=== PATIENT | female | born 1975 | race Caucasian/White ===

== ENCOUNTER 2018-06-09 15:53 | Inpatient (IN) | payer BC, OTHER ==
[~2018-06-09 15:53] MED LIST: ISOVUE-370 76%-LOCM 1 ML ONE; Iopamidol 370 76% 50 ML VIAL FS ONE
[2018-06-09] MEDS ORDERED: Acetaminophen 1,000 MG in Premix Bag 1 BAG IVPB PRN (17:38)
[2018-06-09] MEDS ORDERED: Ketorolac Tromethamine 30 MG/ML VIAL IVP PRN (17:38)
[2018-06-09] MEDS ORDERED: Ketorolac Tromethamine 30 MG/ML VIAL IVP SCH (17:45)
[2018-06-09] MEDS ORDERED: Lactated Ringer's 1,000 ML IV SCH ×2 (17:45)
[2018-06-09] MEDS ORDERED: Acetaminophen 1,000 MG in Premix Bag 1 BAG IVPB SCH (17:45)
[2018-06-09 17:47] LABS: #Basophils 0.1 thou/uL (0.0-0.2); #Eosinphils 0.2 thou/uL (0.0-0.7); #Lymphocytes 2.5 thou/uL (1.20-3.40); #Monocytes 0.7 thou/uL (0.11-0.59); #Neutrophils 4.4 thou/uL (1.40-6.50); %Basophils 1.2 % (0.0-1.0); %Lymphocytes 32.1 % (21.0-51.0); %Monocytes 8.5 % (0.0-10.0); %Neutrophils 56.2 % (42.0-75.0); Mean Corpuscular HGB CONC 33.2 g/dL (32.0-36.0); Mean Corpuscular Volume 87.2 fL (78.0-98.0); Mean Platelet Volume 6.8 fL (7.4-10.4); Platelet Count 378 thou/uL (130-400); RBC Distribution Width 11.4 % (11.5-14.5); Red Blood Cell (RBC) Count 4.51 mill/uL (4.20-5.40); White Blood Cell (WBC) Count 7.8 thou/uL (4.8-10.8)
[2018-06-09 18:09] LABS: ALT (SGPT) 95 U/L (8-55); AST (SGOT) 19 U/L (5-34); Albumin 4.1 g/dL (3.5-5.0); Alkaline Phosphatase 129 U/L (40-150); Anion Gap 13 mmol/L (10-20); BUN (Urea Nitrogen) 11 mg/dL (7.0-18.7); Bilirubin, Total 0.7 mg/dL (0.2-1.2); Calc. Creatinine Clearance 0 mL/min (70-130); Calcium 8.8 mg/dL (7.8-10.44); Carbon Dioxide 24 mmol/L (22-29); Chloride 101 mmol/L (98-107); Estimated GFR-MDRD 87; Globulin 2.9 g/dL (2.4-3.5); Glucose 90 mg/dL (70-105); Sodium 135 mmol/L (136-145)
[2018-06-09 18:13] LABS: Potassium 2.9 mmol/L (3.5-5.1)
[2018-06-09] MEDS ORDERED: Promethazine HCl 25 MG/ML VIAL IVPB PRN (18:17)
[2018-06-09] MEDS ORDERED: Promethazine HCl 25 MG SUPP PR PRN (18:23)
[2018-06-09] MEDS ORDERED: Promethazine HCl 25 MG/ML VIAL IM PRN (18:23)
[2018-06-09] MEDS ORDERED: Pantoprazole 40 MG VIAL IVP SCH ×2 (19:00→21:00)
[2018-06-09 19:34] VITALS: BMI 22.8
[2018-06-09] MEDS: Enoxaparin Sodium 40 MG/0.4 ML SYRINGE SC SCH (21:44)
[2018-06-09] MEDS: Potassium Chloride 20 MEQ in Lactated Ringer's 1,000 ML IV SCH (21:54)
--- NOTE | 2018-06-09 21:58 | CT ---
CONTRAST ENHANCED CT IMAGES ABDOMEN AND PELVIS: 06/09/18 HISTORY: Pain in upper abdomen. Diarrhea. Contrast enhanced CT images of the abdomen and pelvis is obtained after administration of IV and oral contrast. The lung bases are unremarkable. The liver and spleen are unremarkable. The gallbladder has been surgically removed. The pancreas is u nremarkable. Adrenal glands and kidneys are unremarkable. No dilated loops of small bowel seen. A normal appearing appendix is seen. There is extensive heterogeneity in the ascending colon and cecum. I cannot exclude the possibility o f a cecal or ascending colonic mass. More distally, the colon contains some fluid. IMPRESSION: Extensive fluid in the colon compatible with patient's history of diarrhea; however, there also appea rs to be some heterogeneity in the ascending colon and cecum. This may represent a mixture of stool w ith oral contrast or may represent possible ascending colonic mucosal mass. Correlate with direct vis ualization. POS: TREVOR
--- NOTE | 2018-06-10 00:42 | CON ---
DATE OF CONSULTATION: 06/09/2018 GASTROENTEROLOGY CONSULTATION CHIEF COMPLAINT: Abdominal pain and diarrhea. HISTORY OF PRESENT ILLNESS: Ms. Valdes is a 42-year-old woman who was admitted this evening with epig astric abdominal pain and worsening diarrhea over the last 5 days. She has had chronic diarrhea with 8-10 loose watery bowel movements per day at baseline for years. Over the last several days; howeve r, the diarrhea has been more explosive and more watery and more frequent. Along with this, she has had pain, aching to cramping pain in the epigastric region that comes in waves, it lasts for several seconds at a time, multiple times per minute and several times per hour. She has had nausea associat ed with this, but no vomiting. She has had no blood in the stool. She has lost 15 pounds over the l ast year and a half unintentionally. She started lisinopril with hydrochlorothiazide a year ago for hypertension but has not been on any other medications over the counter. She has not done anything t o treat the chronic diarrhea recently, as she has not had success with treating this in the past. She has been [place] [address] Rosa for the chronic diarrhea. She underwent EGD and colo noscopy at that time with biopsies of the duodenum and colon, which were unremarkable. Colonoscopy t o the terminal ileum was normal. The upper endoscopy was unremarkable. She had her gallbladder out back in 1996 and she was treated with cholestyramine and Colestid without improvement. She does not get much dairy in her diet and the symptoms continue when she is off it. She a few years ago was linda ated by a doctor in [place] with Viberbereket. She states that her bowel movements actually went ba ck to normal and she did much better while on that medicine; however, she then started developing rig ht upper quadrant abdominal pain that went away when she stopped the medication. She was to the [facility]. She had an acute hepatitis in which time, her transaminases went up to the 5000 range; however, no acute etiology was identified for that. Her enzymes improved and she did not follow up further after that. She was not taking any Tylenol at that time per her r eport. PAST MEDICAL HISTORY: Irritable bowel syndrome with chronic diarrhea. Her last colonoscopy was 11 y ears ago now. She had endoscopy at that time, hypertension. PAST SURGICAL HISTORY: Hysterectomy, laparoscopic cholecystectomy, breast augmentation, rectocele re pair, EGD and colonoscopy, abdominoplasty, biceps repair. FAMILY HISTORY: Negative for GI malignancy. She thinks, she had an aunt might have had ulcerative c olitis. SOCIAL HISTORY: Rare alcohol use, maybe once per month. No smoking, no drugs. ALLERGIES: No known drug allergies. MEDICATIONS PRIOR TO ADMISSION: Lisinopril with hydrochlorothiazide. REVIEW OF SYSTEMS: Negative x10 systems reviewed except as stated in the history of present illness. PHYSICAL EXAMINATION: VITAL SIGNS: Temperature 98.7, pulse 67, blood pressure 125/81. GENERAL: She is in no acute distress. She is alert and oriented x3. EYES: Have no scleral icterus. OROPHARYNX: Clear without lesions. NECK: No cervical or supraclavicular lymphadenopathy. LUNGS: Clear to auscultation bilaterally. HEART: Regular rate and rhythm without murmur. ABDOMEN: Soft, mild tenderness in the epigastric region without guarding. Bowel sounds are present. EXTREMITIES: No lower extremity edema. NEUROLOGIC: Cranial nerves are grossly intact. LABORATORY AND X-RAY FINDINGS: White blood cell count 7.8, hemoglobin 13.0, platelets 378. Sodium 1 35, potassium 2.9, creatinine 0.3. Bilirubin 0.7, AST 19, ALT 95, alkaline phosphatase 129, albumin 4.1. IMPRESSION: 1. Epigastric pain and acute on chronic diarrhea. She has a longstanding history of irritable bowel syndrome, diarrhea, predominant. This acute episode with nausea and upper abdominal pain and diarrh ea could just be an acute infectious, gastroenteritis on top of her chronic symptoms; however, there could be a more significant chronic process with that. This is an acute flare of. She has had simil ar upper abdominal pain with her irritable bowel syndrome in the past. Regarding the long-term chron ic diarrhea, she has had colonoscopy to the terminal ileum and endoscopy, both with biopsies of the d uodenum and colon that have been negative. She really has not followed up with GI recently regarding these symptoms. She has been treated with bile salt binding agents in the past without help. She w as treated with Viberzi, which helped her diarrhea greatly while she was on it; however, she develope d right upper quadrant pain secondary to the medication which went away when she stopped it. This me dicine is now identified to be contraindicated in people with whom have had cholecystectomy. She has ongoing symptoms even when she is not using lactose. At this point, I would suspect an acute infect ious gastroenteritis on top of her chronic underlying irritable bowel. She is at a point now that sh janeth should have followup endoscopy and colonoscopy to evaluate her chronic symptoms. Ideally, if this is an acute infectious process that she has now then she should delay the EGD and colonoscopy until a fter this acute episode resolves. If she fails to improve; however, then EGD and colonoscopy can be performed more immediately. 2. Abnormal liver function tests, her ALT was elevated in the three times upper limit of normal rang e. Given that she had the past severe acute hepatitis without an identified source. I will send fur ther workup for chronic liver disease as well. She could have fatty liver disease. She is scheduled to have a CT today and we will see if there is obvious evidence of fatty liver disease with that. RECOMMENDATIONS: 1. Check viral hepatitis panel and autoimmune markers and iron saturation and alpha 1 antitrypsin le deya and ceruloplasmin. 2. Stool studies for C. diff culture and ova and parasites and lactoferrin. 3. She eventually should have upper and lower endoscopy. Ideally, this would be a couple of weeks o r more after she resolves from this acute process; however, if she fails to improve over the next few days with fluids and antiemetics then more immediate endoscopy can be considered.
[2018-06-10] MEDS: Potassium Chloride 20 MEQ in Lactated Ringer's 1,000 ML IV SCH ×2 (04:41→22:14)
[2018-06-10 05:44] LABS: Anion Gap 9 mmol/L (10-20); BUN (Urea Nitrogen) 8 mg/dL (7.0-18.7); Calc. Creatinine Clearance 97 mL/min (70-130); Calcium 8.1 mg/dL (7.8-10.44); Carbon Dioxide 24 mmol/L (22-29); Chloride 105 mmol/L (98-107); Estimated GFR-MDRD Greater than 90; Glucose 80 mg/dL (70-105); Potassium 3.5 mmol/L (3.5-5.1); Sodium 134 mmol/L (136-145)
[2018-06-10 08:22] LABS: Iron 80 ug/dL (50-170); Iron Binding Capacity, Total 245 mcg/dL (265-497)
--- NOTE | 2018-06-10 08:23 | HP ---
HISTORY OF PRESENT ILLNESS: Silvina Valdes is a 42-year-old female well known to me. The patient pr esents with four days of explosive, voluminous diarrhea 10-12 liquid stools per day. She complains o f unresolving intolerable pain. She has marginal fluid intake. She feels very weak and is dehydrate d. She was hospitalized 2-3 years ago in [place], [place] for a similar episode without the d iarrhea with upper abdominal pain, requiring NG tube for 4 days. CAT scan obtained. No endoscopy pe rformed. The patient does have chronic problems with loose stools having 8 to 10 a day, watery, but this current episode is associated with pain and explosive diarrhea more voluminous. She has not manisha e any antibiotics recently. She has not undergone any foreign travel or eat any unusual food and the re is no one sick in her family. Because of her dehydration, abdominal pain and acute nature unresol ving, plan is to admit her, hydrate her, obtain CAT scan of abdomen and pelvis as well as labs and ob tain GI consultation. Last colonoscopy, upper endoscopy was probably in [address] Maddox prior to hy sterectomy. Dr. Baldwin has seen her in the past. The patient has lost weight unintentionally recent ly in the last few months. 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 LABORATORY DATA: Pending. ALLERGIES: None. TOBACCO: None. ALCOHOL: None. MEDICATIONS: Lisinopril/hydrochlorothiazide 20/12.5 daily, azelastine/hydrochloride 20/12.5 mcg spra y twice daily. PAST MEDICAL HISTORY: Chronic diarrhea, urolithiasis, depression, malaise, fatigue, irritable bowel syndrome type symptoms. ALLERGIES: HYDROCODONE, TAPE. PAST SURGICAL HISTORY: Hysterectomy in 2003 without oophorectomy, rectocele 2003, cystocele 2003, ch olecystectomy laparoscopic in [address] Xiao, colonoscopy by Dr. Rosa in 2006, and 201 0 colonoscopy and EGD by Dr. Maddox, breast augmentation, abdominoplasty. REVIEW OF SYSTEMS: Ten-point noncontributory. PHYSICAL EXAMINATION: VITAL SIGNS: 132 pounds, 5 feet 3 inches, 23 BMI, 141/64, 79, 98.1 degrees. LUNGS: Clear to auscultation. CARDIAC: Regular rate and rhythm without murmur or gallop. ABDOMEN: Soft, nondistended, mild tenderness with guarding upper abdomen. No peritoneal signs. Sca phoid abdomen. No hernias. EXTREMITIES: Without edema, palpable pulses. LYMPH: No lymphadenopathy in neck, axilla, groins. She is dehydrated and pale. ASSESSMENT AND PLAN: Dehydration, diarrhea, nausea without vomiting, abdominal pain. Admission as her pain is intolerable. Plan hydration, GI consultation. CT scan of abdomen and pelvi s, laboratory profile, stool studies, Cyclospora, , Clostridium difficile.
[2018-06-10 08:36] LABS: Ferritin 99.35 ng/mL (10-291)
[2018-06-10] MEDS: Pantoprazole 40 MG VIAL IVP SCH (08:51)
[2018-06-10 08:54] LABS: HBCM Index 0.06 S/CO (0-0.79); Hep A IgM AB Non-Reactive (NonReactive); Hep B Core Total Ab Non-Reactive (NonReactive); Hep B Core Total Index 0.04 S/CO (0-0.79); Hep B Surf Ag Non-Reactive S/CO (NonReactive); Hep C IgG Ab Non-Reactive (NonReactive); Hepatitis B Core IGM Abs Non-Reactive (NonReactive)
[2018-06-10 10:05] LABS: HBSAg Index 0.15 S/CO (0-0.99)
[2018-06-10 10:09] LABS: Hep A IgM S/CO 0.12 S/CO (0-0.79)
[2018-06-10 10:13] LABS: Hep B Surf AB Reactive (NonReactive)
[2018-06-10] MEDS ORDERED: Acetaminophen 500 MG TAB PO PRN (11:34)
--- NOTE | 2018-06-10 13:45 | PRG ---
DATE OF SERVICE: 06/10/2018 HISTORY OF PRESENT ILLNESS: Ms. Valdes is feeling a little better today after hydration. She is stil l having some abdominal pain. CAT scan revealed changes consistent with colitis ascending, transvers e colon. This is in the vicinity of her pain. CAT scan otherwise unremarkable last night. She has had more liquid stools that she has had for the past 4 days. White count is 7.8, hemoglobin 13, sodium 134, potassium improved from 2.9-3.5 this morning. Liver f unction tests essentially normal. Stool cultures reveal C. diff antigen and toxin negative. Campylo bacter, Shigella toxin test negative and stool lactoferrin positive. Cyclosporine is pending. PHYSICAL EXAMINATION: LUNGS: Clear to auscultation. CARDIAC: Regular rate and rhythm without murmur or gallop. ABDOMEN: Soft, nondistended, mild tenderness in right abdomen, upper abdomen without guarding or tucker ound. Scaphoid abdomen. EXTREMITIES: Unremarkable. ASSESSMENT AND PLAN: Severe gastroenteritis, dehydration, hypokalemia, all improved with hydration a nd potassium replacement. Toradol was working adequate for pain relief as needed. She can use p.r.n . IV or p.o. Ofirmev or Tylenol respectfully. I have initiated clear liquids. I have talked to Dr. Hodge who is planning colonoscopy either today or tomorrow. Bowel prep is planned. At this point Omid Mojica is covering the weekend. Dr. Mojica will be seeing her. She can be discharged home when appropriate per Gastroenterology workup and consultation. Followup should be with Gastroenterology. I have tentatively written a prescription for Flagyl and Cipro should she need it, but that will de pend on Gastroenterology's recommendation and stool culture results and endoscopy results. We will l eave that decision to Dr. Mojica and Dr. Hodge.
--- NOTE | 2018-06-10 14:18 | PRG ---
DATE OF SERVICE: 06/10/2018 SUBJECTIVE: Ms. Valdes feels much better today. Her nausea is resolved. Her pain is greatly improve d. She is continued to have liquidy stools. OBJECTIVE: VITAL SIGNS: Temperature 98.6, pulse 75, blood pressure 101/68. GENERAL: She is in no acute distress, alert and oriented x3. LUNGS: Clear to auscultation bilaterally. HEART: Regular rate and rhythm. ABDOMEN: Soft, nontender, nondistended. Bowel sounds are present. EXTREMITIES: No lower extremity edema. LABORATORY DATA: White blood cell count 7.8, hemoglobin 13.0, platelets 378. Hepatitis panel is neg ative except for a positive hepatitis B surface antibody secondary to past vaccination, creatinine 0. 7, iron 80, TIBC 245, ferritin 99. IMPRESSION: 1. Chronic diarrhea and abdominal pain, likely secondary to irritable bowel syndrome. Her last colo noscopy has been 10 years ago and she has numerous watery stools per day. This deserves followup exa m. 2. Abnormal CT scan showing a heterogeneity in the right colon/cecum. This may just be stool or con trast irregularity, but mucosal neoplastic lesion needs to be ruled out. 3. Abnormal liver function tests. She has had ALT 3 times upper limit of normal. This could be rel ated to fatty liver disease. The liver appeared unremarkable by CT. The spleen was normal by CT. T here are no obvious medications that she has been on to cause this. More extensive evaluation with l ab work including autoimmune markers and alpha 1 antitrypsin level and ceruloplasmin have been sent. 4. Acute worsening of her diarrhea. Stool studies are negative for infectious process so far. The culture is pending. RECOMMENDATIONS: 1. EGD and colonoscopy tomorrow. 2. Await additional blood work sent to evaluate the liver tests or the liver abnormalities.
[2018-06-10 14:46] LABS: EliA Vaculitis New Method **** NEW METHOD ****; Mitochondrial Ab Less than 0.5 U/mL (<4 Negative)
[2018-06-10] MEDS ORDERED: GoLYTELY 4,000 ml Bottle PO SCH (16:00)
[2018-06-10] MEDS: 1/2 NS w/KCL 20 mEq 1,000 ML IV SCH ×2 (16:18→21:22)
[2018-06-10] MEDS: Enoxaparin Sodium 40 MG/0.4 ML SYRINGE SC SCH (21:21)
[2018-06-11] MEDS: 1/2 NS w/KCL 20 mEq 1,000 ML IV SCH ×2 (01:27→07:10)
[2018-06-11 05:32] LABS: Anion Gap 13 mmol/L (10-20); BUN (Urea Nitrogen) Less than 4 mg/dL (7.0-18.7); Calc. Creatinine Clearance 105 mL/min (70-130); Calcium 8.2 mg/dL (7.8-10.44); Carbon Dioxide 21 mmol/L (22-29); Chloride 110 mmol/L (98-107); Estimated GFR-MDRD Greater than 90; Glucose 72 mg/dL (70-105); Potassium 3.9 mmol/L (3.5-5.1); Sodium 140 mmol/L (136-145)
[2018-06-11] MEDS ORDERED: Promethazine HCl 25 MG/ML VIAL IM PRN (08:47)
[2018-06-11] MEDS ORDERED: Ondansetron HCl/PF 4 MG/2 ML Vial IVP PRN (08:47)
[2018-06-11] MEDS ORDERED: Promethazine HCl 25 MG/ML VIAL SLOW IVP PRN (08:47)
[2018-06-11] MEDS ORDERED: Ondansetron HCl/PF 4 MG/2 ML Vial ONE (09:26)
--- NOTE | 2018-06-11 10:28 | OP ---
DATE OF PROCEDURE: 06/10/2018 PROCEDURE PERFORMED: Esophagogastroduodenoscopy with biopsy and colonoscopy with biopsy. PREOPERATIVE DIAGNOSES: Epigastric pain and chronic diarrhea. OPERATIVE DETAIL: Informed consent was obtained from the patient. She was sedated with total intrav enous anesthesia. The bite block was placed and the endoscope was advanced easily to the second port ion of the duodenum and retroflexion was performed in the stomach. The esophagus was normal. The GE junction was normal. The stomach was normal including retroflexed views. The pylorus and first and second portions of the duodenum were normal. Biopsies were obtained from the duodenum to rule out c eliac disease. The patient was turned around. Rectal exam was performed and was normal. The prepar ation quality was excellent. The colonoscope was advanced to the terminal ileum without difficulty. The mucosa of the terminal ileum was normal. The ileocecal valve and appendiceal orifice were clear ly identified. The colonic mucosa was normal throughout. Random biopsies were taken from the right and left colon to rule out microscopic colitis. Retroflexed views in the rectum were normal. IMPRESSION: 1. Normal esophagogastroduodenoscopy. Duodenal biopsies taken to rule out celiac disease. 2. Normal colonoscopy to the terminal ileum. Random biopsies taken from the colon to rule out micro scopic colitis. RECOMMENDATIONS: 1. Await histopathology. 2. Advance diet. 3. Add Metamucil 2 capsules daily. 4. Follow up in GI clinic with Dr. Rosa for long-term management of diarrhea predominant irritable bowel syndrome.
[2018-06-11 11:56] VITALS: BP 105/69; TEMP 97.8
[2018-06-11] MEDS: Pantoprazole 40 MG VIAL IVP SCH (12:02)
[2018-06-11] MEDS ORDERED: PROPOFOL 200 MG/20 ML VIAL ONE (15:51)
[2018-06-12] MEDS ORDERED: Metamucil PACK PO SCH (09:00)
--- NOTE | 2018-06-13 13:41 | DIS ---
DATE OF ADMISSION: 06/09/2018 DATE OF DISCHARGE: 06/11/2018 DISCHARGE DIAGNOSES: Abdominal pain, diarrhea, dehydration, hypokalemia. PROCEDURES DURING THIS HOSPITALIZATION: CT scan of abdomen and pelvis. Thickened colon. Upper endo scopy, normal esophagogastroduodenoscopy, biopsies to rule out celiac disease, performed colonoscopy random biopsies to rule out microscopic colitis. DISCHARGE MEDICATIONS: Protonix 40 mg a day, Metamucil twice a day. Follow up with Dr. Rosa for long-term management of diarrhea, predominantly irritable bowel syndrome . Gastroenteritis, exacerbation of her chronic diarrhea, note stool studies are negative. HISTORY: A 42-year-old female with severe abdominal pain, dehydration, and diarrhea. She has chroni c watery stools, but they become more volume and frequent and she had abdominal pain. She was seen i n my office, evaluated, and noted to be severely dehydrated and with her abdominal pain and her diarr hea, she was admitted. Potassium was 2.9 that was replaced, rechecked, and normalized. GI consultat ion, Dr. Hodge performed upper and lower endoscopy performed, CAT scan performed, results as noted. Stool studies obtained all of which were negative. Lactoferrin was elevated. The patient discharged home on Protonix, Metamucil, and resume her home medications lisinopril/hydrochlorothiazide 20/12.5 mg a day. She will follow up with Dr. Rosa.
[2018-06-14 14:23] LABS: Alpha-1-Antitrypsin 140 mg/dL (90-200)
== END 2018-06-11 12:35 | disposition home or self-care (01) | DRG 392 ==
LOC: SURG B 16:32
PROVIDERS: ADMIT Specialist; ATTEND Specialist
PROC: 0DB98ZX Excision of Duodenum, Via Natural or Artificial Opening Endoscopic, Diagnostic (ICD-10-PCS; principal; 2018-06-11)
PROC: 0DBG8ZX Excision of Left Large Intestine, Via Natural or Artificial Opening Endoscopic, Diagnostic (ICD-10-PCS; 2018-06-11)
PROC: 0DBF8ZX Excision of Right Large Intestine, Via Natural or Artificial Opening Endoscopic, Diagnostic (ICD-10-PCS; 2018-06-11)
DX: K52.9 Noninfective gastroenteritis and colitis, unspecified (principal); E86.0 Dehydration; E87.6 Hypokalemia
CPT/HCPCS: 36415; 74177; 80048; 80053; 80074; 82103; 82104; 82390; 82728; 83516; 83540; 83550; 83630; 85025; 86704; 86706; 87015; 87045; 87046; 87177; 87206; 87324; 87449; 87899; 88305; C9113; J0131; J1650; J1885; J2270; J2405; J2550; J2704; J3480; J7120

== ENCOUNTER 2020-07-04 09:35 | Outpatient (CLI) | payer OTHER ==
[2020-07-04] MEDS ORDERED: Iopamidol 300 61% 50 ML VIAL FS ONE (10:20)
[2020-07-04] MEDS ORDERED: Lidocaine 1% PF 10 ML AMP ONE (10:20)
[2020-07-04] MEDS ORDERED: Gadobenate Dimeglumine 529 MG/1 ML (20ML VIAL) ONE (10:20)
[2020-07-04] MEDS ORDERED: EPINEPHrine 1 MG/ML AMP ONE (10:20)
--- NOTE | 2020-07-04 10:37 | RAD ---
Radiograph right shoulder 3 views: 07/04/2020 HISTORY: 44-year-old female with right shoulder pain. "S 43.431 A, superior labral SLAP tear" COMPARISON: None FINDINGS: No dislocation, subluxation, fracture, or destructive osseous lesion. No metallic hardware. Glenohumeral joint is slightly widened. Normal AC joint. IMPRESSION: 1.) Slightly widened glenohumeral joint. 2.) Otherwise negative.
--- NOTE | 2020-07-04 13:52 | MRI ---
MR ARTHROGRAM RIGHT SHOULDER: 07/04/20 PROVIDED CLINICAL HISTORY: Pain. FINDINGS: No comparisons. The components of the rotator cuff appear intact. Intact long head biceps tendon fibers are not identified. The glenoid labrum and glenoid articular cartilage appear preserved. Mild irregularity in the region of the biceps anchor related to biceps tendon disruption. There is a 6 mm full thickness articular cartilage defect involving the cranial aspects of the karan l head articular surface ventrally. The acromioclavicular joint appears unremarkable. There are several intra-articular bodies at the pos terior aspect of the glenohumeral joint measuring about 4 mm in aggregate. No focal concerning region al marrow or muscular signal abnormality is evident. IMPRESSION: 1. Intact long head biceps tendon fibers are not identified. 2. Full thickness humeral head articular cartilage defect with intra-articular bodies. POS: ROBERTO CARLOS
[2020-07-04] MEDS ORDERED: Magnevist 469MG/ML 20 ML VIAL ONE (14:49)
== END 2020-07-04 09:36 | disposition home or self-care (01) ==
LOC: RAD 09:35
PROVIDERS: ATTEND Orthopaedic Surgery
DX: S43.431A Superior glenoid labrum lesion of right shoulder, initial encounter (principal)
CPT/HCPCS: 23350; A9577; A9579; J0171; J2001; Q9967

== ENCOUNTER 2020-07-19 08:21 | Outpatient (CLI) | payer OTHER ==
--- NOTE | 2020-07-19 10:27 | MRI ---
EXAM: MRI right humerus PROVIDED CLINICAL HISTORY: Proximal humerus pain COMPARISON: MR arthrogram shoulder 07/04/2020 FINDINGS: Postoperative changes of subpectoral long head biceps tenodesis are demonstrated. The remaining long head biceps tendon and conjoined tendon appear intact. The regional musculature demonstrates a normal MR appearance. Regional marrow signal appears unremarkable. The courses of the regional major neurovascular structures appear unremarkable. There is no evidence for muscular fascial herniation. IMPRESSION: No evidence for an acute process.
== END 2020-07-19 08:22 | disposition home or self-care (01) ==
LOC: BICMRI 08:21
PROVIDERS: ATTEND Orthopaedic Surgery
DX: S43.431A Superior glenoid labrum lesion of right shoulder, initial encounter (principal)